=== PATIENT | female | born 1985 | race Caucasian/White ===

== ENCOUNTER → 2021-02-20 | Outpatient (CLI) | payer BC, SELFPAY | END | disposition home or self-care (01) | PROVIDERS: Visit Provider Dermatology | DX: L02.412 Cutaneous abscess of left axilla (principal); R20.8 Other disturbances of skin sensation; Z33.1 Pregnant state, incidental | CPT/HCPCS: 87070; 87077; 87186; 87205 ==

== ENCOUNTER → 2025-07-05 | Outpatient (CLI) | payer BC, SELFPAY ==
--- NOTE | 2025-07-05 12:36 | RAD_ITS ---
PROCEDURE: ANKLE MIN 3 VIEWS 07/05/2025 REASON FOR EXAM: FALL TECHNIQUE: Procedure Code: RADANK Modality: DX Procedure: ANKLE MIN 3 VIEWS Laterality: FINDINGS: No evidence of acute fracture or dislocation. The joint spaces are maintained. Small plantar calcaneal enthesophyte. The soft tissues are unremarkable. RAD/Ankle min 3 Views IMPRESSION: No acute osseous abnormalities. Reading Location: [facility]
== END | disposition home or self-care (01) ==
LOC: MTRAD 12:34
PROVIDERS: PCP Family Medicine; Referring Provider Physician Assistant; Visit Provider Physician Assistant
DX: S99.911A Unspecified injury of right ankle, initial encounter (principal)
CPT/HCPCS: 73610